=== PATIENT | male | born 1975 | race Caucasian/White ===

== ENCOUNTER 2022-04-08 14:34 | Inpatient (IN) ==
[2022-04-08] MEDS ORDERED: Ondansetron 4 MG/2 ML VIAL IVP ONE (20:10)
[2022-04-08] MEDS ORDERED: Morphine Sulfate 2 MG/ML SYRINGE IVP ONE (20:10)
[2022-04-08 20:29] LABS: Basophils % 0.3 %; Eosinophils # 0.3 K/mcL (0.0-0.6); Eosinophils % 4.8 %; Hematocrit 42.8 % (37.5-50.1); Hemoglobin 14.1 g/dL (12.9-16.9); Immature Granulocytes % 0.3 % (0-4); Lymphocytes # 1.6 K/mcL (0.6-4.6); Lymphocytes % 22.9 %; Mean Corpuscular HGB Conc 32.9 g/dL (31.6-35.5); Mean Corpuscular Hemoglobin 29.6 pg (28.0-33.3); Mean Corpuscular Volume 89.7 fL (83.0-100.0); Mean Platelet Volume 9.2 fL (9.4-12.4); Monocytes # 0.8 K/mcL (0.0-1.3); Monocytes % 11.3 %; Neutrophils # 4.2 K/mcL (1.6-8.9); Platelet Count 362 K/mcL (140-400); Red Blood Count 4.77 M/mcL (4.19-5.50); Red Cell Distribution Width 14.8 % (11.5-14.5); Segmented Neutrophils % 60.4 %; White Blood Count 6.9 K/mcL (4.3-11.1)
[2022-04-08 20:45] LABS: Calcium 9.2 mg/dL (8.6-10.3); Potassium 4.5 mEq/L (3.5-5.1)
[2022-04-08] MEDS ORDERED: Vancomycin 1,250 MG/262.5 ML IV.SOLN IVPB ONE (21:46)
[2022-04-08] MEDS ORDERED: Piperacillin/Tazobactam 3.375 GM in 0.9 % Sodium Chloride Mini Bag 100 ML IVPB ONE (21:46)
[2022-04-08] MEDS ORDERED: Iopamidol - 370 500 ML MLS IVP ONE (21:49)
[2022-04-08] MEDS ORDERED: Naloxone 0.4 MG/ML INJ IVP PRN (22:44)
[2022-04-08] MEDS ORDERED: Ondansetron 4 MG/2 ML VIAL IVP PRN (22:44)
[2022-04-08] MEDS ORDERED: Acetaminophen 325 MG TABLET PO PRN (22:44)
[2022-04-09] MEDS ORDERED: Piperacillin/Tazobactam 3.375 GM in 0.9 % Sodium Chloride Mini Bag 100 ML IVPB SCH (08:00)
[2022-04-09 08:02] LABS: Basophils % 0.3 %; Eosinophils # 0.5 K/mcL (0.0-0.6); Eosinophils % 8.4 %; Hematocrit 42.1 % (37.5-50.1); Hemoglobin 13.7 g/dL (12.9-16.9); Immature Granulocytes % 0.2 % (0-4); Lymphocytes # 1.1 K/mcL (0.6-4.6); Lymphocytes % 17.4 %; Mean Corpuscular HGB Conc 32.5 g/dL (31.6-35.5); Mean Corpuscular Hemoglobin 29.3 pg (28.0-33.3); Mean Platelet Volume 9.3 fL (9.4-12.4); Monocytes # 0.6 K/mcL (0.0-1.3); Monocytes % 10.1 %; Neutrophils # 3.9 K/mcL (1.6-8.9); Platelet Count 317 K/mcL (140-400); Red Blood Count 4.68 M/mcL (4.19-5.50); Segmented Neutrophils % 63.6 %; White Blood Count 6.2 K/mcL (4.3-11.1)
[2022-04-09 08:22] LABS: Calcium 8.8 mg/dL (8.6-10.3); Magnesium 1.8 mg/dL (1.6-2.6); Potassium 3.9 mEq/L (3.5-5.1)
[2022-04-09] MEDS: Nicotine 14 MG PATCH.TD24 TD SCH (09:32)
[2022-04-09] MEDS: Vancomycin 1,250 MG/262.5 ML IV.SOLN IVPB SCH ×2 (11:32→23:03)
[2022-04-09] MEDS: Ertapenem 1,000 MG in 0.9 % Sodium Chloride Mini Bag 100 ML IVPB SCH (16:54)
[2022-04-09] MEDS: *HR* OxyCODONE Immed Rel 5 MG TABLET PO PRN (20:35)
[2022-04-10] MEDS: *HR* HYDROcodone/Acet 5/325 mg TABLET PO PRN (01:24)
[2022-04-10] MEDS: Nicotine 14 MG PATCH.TD24 TD SCH (07:46)
[2022-04-10] MEDS: Lactobacillus 1 EACH CAP.SPRINK PO SCH ×2 (10:32→21:07)
[2022-04-10] MEDS: Vancomycin 1,500 MG/265 ML IV.SOLN IVPB SCH ×2 (11:43→23:40)
[2022-04-10] MEDS: *HR* OxyCODONE Immed Rel 5 MG TABLET PO PRN ×2 (11:49→21:06)
[2022-04-10] MEDS: Ertapenem 1,000 MG in 0.9 % Sodium Chloride Mini Bag 100 ML IVPB SCH (14:08)
[2022-04-11] MEDS: *HR* OxyCODONE Immed Rel 5 MG TABLET PO PRN ×2 (03:26→20:24)
[2022-04-11 03:36] LABS: Basophils % 0.4 %; Eosinophils # 0.5 K/mcL (0.0-0.6); Eosinophils % 7.8 %; Hematocrit 44.9 % (37.5-50.1); Hemoglobin 14.5 g/dL (12.9-16.9); Immature Granulocytes % 0.4 % (0-4); Lymphocytes # 1.7 K/mcL (0.6-4.6); Lymphocytes % 25.4 %; Mean Corpuscular HGB Conc 32.3 g/dL (31.6-35.5); Mean Corpuscular Hemoglobin 29.2 pg (28.0-33.3); Mean Corpuscular Volume 90.3 fL (83.0-100.0); Mean Platelet Volume 9.3 fL (9.4-12.4); Monocytes # 0.6 K/mcL (0.0-1.3); Monocytes % 9.1 %; Neutrophils # 3.8 K/mcL (1.6-8.9); Platelet Count 351 K/mcL (140-400); Red Blood Count 4.97 M/mcL (4.19-5.50); Red Cell Distribution Width 14.8 % (11.5-14.5); Segmented Neutrophils % 56.9 %; White Blood Count 6.7 K/mcL (4.3-11.1)
[2022-04-11 04:00] LABS: Calcium 8.6 mg/dL (8.6-10.3); Potassium 4.3 mEq/L (3.5-5.1)
[2022-04-11] MEDS: Lactobacillus 1 EACH CAP.SPRINK PO SCH ×2 (08:14→20:25)
[2022-04-11] MEDS: Nicotine 14 MG PATCH.TD24 TD SCH (11:01)
[2022-04-11] MEDS: Vancomycin 1,500 MG/265 ML IV.SOLN IVPB SCH ×2 (12:49→23:31)
[2022-04-11] MEDS: Ertapenem 1,000 MG in 0.9 % Sodium Chloride Mini Bag 100 ML IVPB SCH (12:50)
[2022-04-11] MEDS: *HR* HYDROcodone/Acet 5/325 mg TABLET PO PRN (23:31)
[2022-04-12] MEDS: *HR* OxyCODONE Immed Rel 5 MG TABLET PO PRN ×4 (02:10→23:17)
[2022-04-12 02:36] LABS: Basophils % 0.5 %; Eosinophils # 0.4 K/mcL (0.0-0.6); Eosinophils % 6.5 %; Hematocrit 42.6 % (37.5-50.1); Immature Granulocytes % 0.5 % (0-4); Lymphocytes # 1.5 K/mcL (0.6-4.6); Lymphocytes % 26.1 %; Mean Corpuscular HGB Conc 32.9 g/dL (31.6-35.5); Mean Corpuscular Hemoglobin 29.4 pg (28.0-33.3); Mean Corpuscular Volume 89.5 fL (83.0-100.0); Mean Platelet Volume 9.4 fL (9.4-12.4); Monocytes # 0.6 K/mcL (0.0-1.3); Monocytes % 9.9 %; Neutrophils # 3.3 K/mcL (1.6-8.9); Platelet Count 344 K/mcL (140-400); Red Blood Count 4.76 M/mcL (4.19-5.50); Red Cell Distribution Width 14.7 % (11.5-14.5); Segmented Neutrophils % 56.5 %; White Blood Count 5.8 K/mcL (4.3-11.1)
[2022-04-12 02:55] LABS: Calcium 8.5 mg/dL (8.6-10.3); Potassium 3.8 mEq/L (3.5-5.1)
[2022-04-12] MEDS: Lactobacillus 1 EACH CAP.SPRINK PO SCH ×2 (08:18→19:36)
[2022-04-12] MEDS: *HR* HYDROcodone/Acet 5/325 mg TABLET PO PRN ×2 (10:34→19:40)
[2022-04-12] MEDS: Vancomycin 1,500 MG/265 ML IV.SOLN IVPB SCH ×2 (11:50→23:18)
[2022-04-12] MEDS: Nicotine 14 MG PATCH.TD24 TD SCH (12:43)
[2022-04-12] MEDS: Ertapenem 1,000 MG in 0.9 % Sodium Chloride Mini Bag 100 ML IVPB SCH (13:55)
[2022-04-13 01:04] VITALS: O2SAT 98
[2022-04-13 03:52] VITALS: BP 120/72; PULSE 88; TEMP 97.4
[2022-04-13] MEDS: *HR* OxyCODONE Immed Rel 5 MG TABLET PO PRN (05:27)
== END 2022-04-13 08:45 | disposition home health service (06) | DRG 721 ==
LOC: 3NENU 14:34 → EMEROOARM 14:34 → 3NENU 04-09 09:38 → SUATTDRO 04-10 14:19
PROVIDERS: ADMIT Internal Medicine; ATTEND Internal Medicine